=== PATIENT | female | born 1935 | race Asian ===

== ENCOUNTER 2016-12-14 10:13 | Day surgery (SDC) | payer OTHER ==
[~2016-12-14 10:13] MED LIST: FENTANYL 250 MCG/5 ML AMP IV PRN; LACTATED RINGERS 1,000 ML IV SCH; LIDOCAINE Viscous 2% 15 ML UDCUP PO PRN; MIDAZOLAM HCL 5 MG/5 ML VIAL IV PRN
[2016-12-14] MEDS ORDERED: LACTATED RINGERS 1,000 ML ONE (11:14)
[2016-12-14] MEDS ORDERED: IV START KIT ONE (11:14)
[2016-12-14] MEDS ORDERED: PROPOFOL 20 ML IV ONE (12:20)
--- NOTE | 2016-12-17 14:58 | SURGPATH ---
[facility], [facility]. [address] [place] [id number] Patient Name: RAPHAEL SANCHEZ MR#: [id number] : 1935 Gender: F Specimen #: [id number] Collected: 12/14/2016 Received: 12/15/2016 Reported: 12/17/2016 Submitting Phys: HEBER FULTON Copy To Phys: [facility] LEN MALDONADO Addendum Present Clinical History / Pre-Operative Diagnosis: EPIGASTRIC PAIN; RIGHT LOWER QUADRANT PAIN; DIARRHEA; RULE OUT GIARDIA, CELIAC SPRUE, GASTRITIS and colitis Specimen Source / Surgical Procedure Performed: #1-duodenal biopsy; #2-stomach antrum biopsy; #3-cecal biopsy; #4-sigmoid colon biopsy at 30 cm Interpretation: 1. DUODENAL BIOPSY: - MINIMAL ACTIVE DUODENITIS. 2. GASTRIC ANTRUM BIOPSY: - CHRONIC ANTRAL GASTRITIS. - IMMUNOHISTOCHEMICAL STAINING FOR HELICOBACTER PENDING (SEE COMMENT). 3. CECAL BIOPSY: - BENIGN COLONIC MUCOSA WITH FOCALLY PROMINENT LYMPHOID AGGREGATES. - NO SIGNIFICANT PATHOLOGIC INFLAMMATION IDENTIFIED. 4. SIGMOID COLON BIOPSY AT 30 CM: - NO SIGNIFICANT PATHOLOGIC ABNORMALITIES IDENTIFIED. Comment: Immunohistochemical staining for Helicobacter has been ordered on the gastric antrum biopsy. The result of this stain will be reported in an addendum. Electronically Signed Out Unique Domínguez M.D. Addendum Date Reported: 12/20/2016 Signed Out Addendum Comment On part 2, no Helicobacter organisms are seen on Helicobacter immunostain. The controls stain appropriately. mow/12/20/2016 Electronically Signed Out By Rosemarie Mcginnis M.D. Gross Description: #1 The specimen is received in a formalin filled container labeled with the patient's name and "duodenal biopsy". Two hunter biopsies are 0.2 and 0.4 cm. Totally embedded in cassette #1. #2 The specimen is received in a formalin filled container labeled with the patient's name and "stomach antrum biopsy". A single hunter biopsy is 0.5 cm. Totally embedded in cassette #2. #3 The specimen is received in a formalin filled container labeled with the patient's name and "cecal biopsy". Two hunter biopsies are 0.3 and 0.4 cm. Totally embedded in cassette #3. #4 The specimen is received in a formalin filled container labeled with the patient's name and "sigmoid colon biopsy at 30 cm". Two cavazos-hunter biopsies are each 0.5 cm. Totally embedded in cassette #4. Rex Castelan Microscopic Description: 1. Sections of the duodenal biopsy show small numbers of neutrophils within the lamina propria. The mucosal villi remain long and slender with no evidence of increased intraepithelial lymphocytes. No parasitic organisms are seen. There is no evidence of neoplasm. 2. Sections of the antral biopsy show increased chronic inflammation of the lamina propria with associated edema and congestion. No intestinal metaplasia is seen. The mucosa is not atrophic. No Helicobacter organisms are appreciated on the routinely stained sections. Immunohistochemical staining for Helicobacter has been ordered and is currently pending. 3. Sections of the cecal biopsy show fragments of benign colonic mucosa with straight and parallel crypts. In one of the fragments, there are a few prominent lymphoid aggregates with nonspecific mucosal congestion. No significant pathologic inflammation is seen. 4. Sections of the sigmoid colon biopsy show fragments of benign colonic mucosa with no significant pathologic changes. (Analyte-specific reagents (ASR) are used in many laboratory tests necessary for standard medical care and generally do not require FDA approval. This test was developed and its performance characteristics determined by [facility]. It has not been cleared or approved by the U.S. Food and Drug Administration. [facility] is certified under the Clinical Laboratory Improvement Amendments of 1988 as qualified to perform high complexity clinical laboratory testing. All controls stain as expected.) 1: 51039 2: 68465, 14614 3: 16291 4: 18435 K29.80 K29.50 R19.7
== END 2016-12-14 13:36 | disposition home or self-care (01) ==
LOC: SDC 10:13
PROVIDERS: ATTEND Internal Medicine Gastroenterology
PROC: 0DB98ZX Excision of Duodenum, Via Natural or Artificial Opening Endoscopic, Diagnostic (ICD-10-PCS; principal; 2016-12-14)
PROC: 0DB68ZX Excision of Stomach, Via Natural or Artificial Opening Endoscopic, Diagnostic (ICD-10-PCS; 2016-12-14)
PROC: 0DBH8ZX Excision of Cecum, Via Natural or Artificial Opening Endoscopic, Diagnostic (ICD-10-PCS; 2016-12-14)
PROC: 0DBN8ZX Excision of Sigmoid Colon, Via Natural or Artificial Opening Endoscopic, Diagnostic (ICD-10-PCS; 2016-12-14)
DX: K57.30 Diverticulosis of large intestine without perforation or abscess without bleeding (principal); K29.50 Unspecified chronic gastritis without bleeding; K29.80 Duodenitis without bleeding; I10 Essential (primary) hypertension; Z79.82 Long term (current) use of aspirin